=== PATIENT | male | born 1945 | race Caucasian/White ===

== ENCOUNTER 2020-01-17 08:40 | Emergency (ER) | payer MEDICARE, BC ==
[2020-01-17 08:51] VITALS: RESP 18; TEMP 97.8
--- NOTE | 2020-01-17 09:12 | ED ---
Extremity Problem HPI - General Chief complaint: Extremity Problem,Nontraumatic Stated complaint: L Leg Pain Time Seen by Provider: 01/17/20 08:52 Source: patient, RN notes reviewed Mode of arrival: wheelchair Limitations: no limitations - History of Present Illness Initial comments: This a 74-year-old male presents emergency Department with chief complaint of left leg pain, left groin pain and back pain. Patient states he has a long history of back issues which she states that he has disc issue. MRI 2 years ago. Patient states he woke up today felt fine but states he started developing left leg pain shortly after. Patient states that he has pain when he walks she states it makes it difficult to walk. Patient states that his left leg feels slightly weaker than the right but did not notice had prior to arrival. Patient states he has no vascular issues he's had several studies for aortic imaging no history of DVT. Patient states 2 weeks ago he had evaluation for urinary retention which was negative states that her bladder scan is no difficulty urinating. Patient has no bladder incontinence or retention. Denies any saddle anesthesias he states he had some nose and tingling in his toes which has resolved. - Related Data Home Medications Medication Instructions Recorded Confirmed Allopurinol [Zyloprim] 200 mg PO HS 01/17/20 01/17/20 Aspirin EC [Ecotrin Low Dose] 81 mg PO HS 01/17/20 01/17/20 Atorvastatin [Lipitor] 10 mg PO HS 01/17/20 01/17/20 Azelastine HCl 2 spray EA NOSTRIL HS PRN 01/17/20 01/17/20 Cetirizine HCl 10 mg PO HS 01/17/20 01/17/20 Montelukast Sodium [Singulair] 10 mg PO HS 01/17/20 01/17/20 Multivit-Min/FA/Lycopen/Lutein 1 tab PO HS 01/17/20 01/17/20 [Centrum Silver Tablet] [place]-3 Fatty Acids/Fish Oil [Fish 2 cap PO HS 01/17/20 01/17/20 Oil 1,000 mg Softgel] Omeprazole 20 mg PO HS 01/17/20 01/17/20 Sulindac 400 mg PO HS 01/17/20 01/17/20 atenoloL [Atenolol] 50 mg PO HS 01/17/20 01/17/20 lisinopriL 20 mg PO HS 01/17/20 01/17/20 Allergies Allergy/AdvReac Type Severity Reaction Status Date / Time No Known Allergies Allergy Verified 01/17/20 12:15 Review of Systems ROS Statement: Those systems with pertinent positive or pertinent negative responses have been documented in the HPI. ROS Other: All systems not noted in ROS Statement are negative. Past Medical History Past Medical History: GERD/Reflux, Hypertension, Osteoarthritis (OA) Additional Past Medical History / Comment(s): diverticulitis History of Any Multi-Drug Resistant Organisms: None Reported Past Surgical History: Bowel Resection, Cholecystectomy Past Psychological History: No Psychological Hx Reported Smoking Status: Never smoker Past Alcohol Use History: Occasional Past Drug Use History: None Reported General Exam Limitations: no limitations General appearance: alert, in no apparent distress Head exam: Present: atraumatic, normocephalic, normal inspection Eye exam: Present: normal appearance, PERRL, EOMI. Absent: scleral icterus, conjunctival injection, periorbital swelling ENT exam: Present: normal exam, normal oropharynx, mucous membranes moist Neck exam: Present: normal inspection, full ROM. Absent: tenderness, meningismus, lymphadenopathy Respiratory exam: Present: normal lung sounds bilaterally. Absent: respiratory distress, wheezes, rales, rhonchi, stridor Cardiovascular Exam: Present: regular rate, normal rhythm, normal heart sounds. Absent: systolic murmur, diastolic murmur, rubs, gallop, clicks GI/Abdominal exam: Present: soft, normal bowel sounds. Absent: distended, tende rness, guarding, rebound, rigid Extremities exam: Present: other (There is discomfort with passive and active range of motion the left leg patient reports primarily pain with abduction of the left hip, pain with left straight leg raise strength 4/5 on the left 5/5 in the right neurovascular intact with equal pedal pulses equal: Equal warmth) Back exam: Present: full ROM, tenderness, paraspinal tenderness. Absent: vertebral tenderness Neurological exam: Present: alert, oriented X3, CN II-XII intact, reflexes normal. Absent: motor sensory deficit Skin exam: Present: warm, dry, intact, normal color. Absent: rash Course Vital Signs 01/17/20 01/17/20 08:48 10:17 Temperature 97.8 F Pulse Rate 62 61 Respiratory 18 18 Rate Blood Pressure 145/89 128/68 O2 Sat by Pulse 99 95 Oximetry - Reevaluation(s) Reevaluation #1: 01/17/20 10:47 Patient reevaluated, updated on CT results pending urinalysis and bladder scan patient states symptoms are improving his pain has decreased has no leg w eakness. Medical Decision Making - Medical Decision Making 74-year-old male presented to [facility] from for low back pain, left leg pain and weakness. Patient's symptoms are improving though still concerned has he has some mild residual left leg weakness. Patient has urinary retention and unable to fully empty his bladder. Patient does have decreased reflexes left greater than right this is concerning for possible cauda equina. Patient needs stat MRI unable to obtain here. Patient's case discussed with Imtiaz Rutherford as requested by family in which Agustina Hernandes accepts transfer - Lab Data Result diagrams: 01/17/20 09:13 01/17/20 09:13 Lab Results 01/17/20 01/17/20 01/17/20 Range/Units 09:13 09:13 09:13 WBC 7.8 (3.8-10.6) k/uL RBC 5.17 (4.30-5.90) m/uL Hgb 17.5 (13.0-17.5) gm/dL Hct 50.8 (39.0-53.0) % MCV 98.3 (80.0-100.0) fL MCH 33.8 (25.0-35.0) pg MCHC 34.4 (31.0-37.0) g/dL RDW 12.6 (11.5-15.5) % Plt Count 139 L (150-450) k/uL Neutrophils % 68 % Lymphocytes % 20 % Monocytes % 6 % Eosinophils % 3 % Basophils % 1 % Neutrophils # 5.3 (1.3-7.7) k/uL Lymphocytes # 1.6 (1.0-4.8) k/uL Monocytes # 0.4 (0-1.0) k/uL Eosinophils # 0.2 (0-0.7) k/uL Basophils # 0.1 (0-0.2) k/uL Sodium 133 L (137-145) mmol/L Potassium 4.5 (3.5-5.1) mmol/L Chloride 99 (98-107) mmol/L Carbon Dioxide 26 (22-30) mmol/L Anion Gap 8 mmol/L BUN 23 H (9-20) mg/dL Creatinine 1.17 (0.66-1.25) mg/dL Est GFR (CKD-EPI)AfAm 72 (>60 ml/min/1.73 sqM) Est GFR (CKD-EPI)NonAf 62 (>60 ml/min/1.73 sqM) Glucose 164 H (74-99) mg/dL Calcium 9.1 (8.4-10.2) mg/dL Total Bilirubin 1.4 H (0.2-1.3) mg/dL AST 40 (17-59) U/L ALT 23 (4-49) U/L Alkaline Phosphatase 82 (38-126) U/L Total Protein 6.9 (6.3-8.2) g/dL Albumin 4.5 (3.5-5.0) g/dL Urine Color Yellow Urine Appearance Clear (Clear) Urine pH 6.5 (5.0-8.0) Ur Specific [place] 1.022 (1.001-1.035) Urine Protein Trace H (Negative) Urine Glucose (UA) Negative (Negative) Urine Ketones Negative (Negative) Urine Blood Negative (Negative) Urine Nitrite Negative (Negative) Urine Bilirubin Negative (Negative) Urine Urobilinogen 3.0 (<2.0) mg/dL Ur Leukocyte Esterase Negative (Negative) Disposition Clinical Impression: Cauda equina syndrome, Urinary retention Disposition: OTHER INSTITUTION NOT DEFINED Condition: Stable Additional Instructions: Go directly to [facility] Referrals: Nonstaff,Physician [Primary Care Provider] - 1-2 days Time of Disposition: 12:59 - Out of Hospital Transfer - Req. Specs Out of Hospital Transfer - Requested Specifics: Other Emergency Center ([facility])
[2020-01-17 09:36] LABS: Basophils # (A) 0.1 k/uL (0-0.2); Basophils % (A) 1 %; Eosinophils # (A) 0.2 k/uL (0-0.7); Eosinophils % (A) 3 %; HCT 50.8 % (39.0-53.0); HGB 17.5 gm/dL (13.0-17.5); Lymphocytes # (A) 1.6 k/uL (1.0-4.8); Lymphocytes % (A) 20 %; MCH 33.8 pg (25.0-35.0); MCHC 34.4 g/dL (31.0-37.0); MCV 98.3 fL (80.0-100.0); Mean Platelet Volume 9.2; Monocytes # (A) 0.4 k/uL (0-1.0); Monocytes % (A) 6 %; Neutrophils # (A) 5.3 k/uL (1.3-7.7); Neutrophils % (A) 68 %; Platelet Count 139 k/uL (150-450); RBC 5.17 m/uL (4.30-5.90); RDW 12.6 % (11.5-15.5); WBC 7.8 k/uL (3.8-10.6)
--- NOTE | 2020-01-17 09:51 | CT ---
EXAMINATION TYPE: CT lumbar spine wo con DATE OF EXAM: 01/17/2020 9:32 AM COMPARISON: None HISTORY: Left leg pain CT DLP: 1131.6 mGycm Automated exposure control for dose reduction was used. Unenhanced CT of the lumbar spine was performed. Bone and soft tissue window settings are submitted as well as coronal and sagittal reconstructions. L1-L2: Normal disc space height. No disc herniation protrusion or central stenosis. No facet joint arthropathy. No evidence for foraminal encroachment. L2-L3: Severe disc desiccation noted with vacuum disc. Grade 1 retrolisthesis measuring approximately 4 mm. Posterior disc bulge with hypertrophy of the ligamentum flavum resulting in moderate central s tenosis. Bilateral foraminal encroachment seen. L3-L4: Moderate to severe disc desiccation. Posterior disc bulge with encapsulating spur. Hypertrophy ligamentum flavum and facet joint arthropathy resulting in moderate central stenosis. Bilateral fora gopal encroachment seen. L4-L5: 1 anterolisthesis L4 and L5 measuring 6 mm. Posterior disc bulge. Mild central stenosis. Vacuu m changes of the facet joints. L5-S1: Mild disc desiccation. Broad-based posterior disc bulge with bilateral lateral recess stenosis and bilateral left greater than right foraminal encroachment. No evidence for central stenosis at th is time. No paraspinal masses are identified. Lumbar segments are intact. IMPRESSION: 1. 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
[2020-01-17 09:53] LABS: Albumin 4.5 g/dL (3.5-5.0); Calcium 9.1 mg/dL (8.4-10.2); Potassium 4.5 mmol/L (3.5-5.1); Total Bilirubin 1.4 mg/dL (0.2-1.3); Total Protein 6.9 g/dL (6.3-8.2)
[2020-01-17] MEDS ORDERED: SODIUM CHLORIDE 0.9% 500 ML 500 ML IV ONE (10:27)
[2020-01-17] MEDS ORDERED: DEXAMETHASONE SOD PHOSPHATE 10 MG/ML 1 ML VIAL IV STA (10:49)
[2020-01-17 11:56] LABS: Appearance,Urine Clear (Clear); Bilirubin,Urine Negative (Negative); Blood,Urine Negative (Negative); Color,Urine Yellow; Glucose,Urine (UA) Negative (Negative); Ketones,Urine Negative (Negative); Leukocyte Esterase,Urine Negative (Negative); Nitrite,Urine Negative (Negative); PH, Urine 6.5 (5.0-8.0); Protein,Urine Trace (Negative); Specific Gravity,Urine 1.022 (1.001-1.035)
[2020-01-17 13:20] VITALS: BP 132/75; PULSE 60
== END 2020-01-17 13:26 | disposition other institution (70) ==
LOC: EC 08:40
DX: G83.4 Cauda equina syndrome (principal); R33.9 Retention of urine, unspecified; I10 Essential (primary) hypertension; K21.9 Gastro-esophageal reflux disease without esophagitis; M19.90 Unspecified osteoarthritis, unspecified site; Z79.899 Other long term (current) drug therapy; Z79.82 Long term (current) use of aspirin; Z79.1 Long term (current) use of non-steroidal anti-inflammatories (NSAID)
CPT/HCPCS: 51798; 36415; 80053; 85025; 81003; 72131; 99284; 96374; 96361 ×3; J1100